=== PATIENT | female | born 1975 ===

== ENCOUNTER 2024-01-02 10:59 | Outpatient (REF) | payer OTHER, SELFPAY ==
--- NOTE | ~2024-01-02 | XR_ITS ---
EXAMINATION: XR ANKLE, RIGHT CLINICAL INFORMATION: Pain. COMPARISON: None available. TECHNIQUE: AP, lateral, and mortise views of the right ankle. FINDINGS: Ankle joint effusion. Diffuse soft tissue swelling at the ankle. Diffuse plantar and dorsal calcaneal spurs. Alignment preserved. No displaced fracture. XR/XR ankle RT min 3V IMPRESSION: Diffuse soft tissue swelling. No displaced fracture. Recommend follow-up imaging in 10-14 days if fracture is suspected.
== END 2024-01-02 11:00 | disposition home or self-care (01) ==
LOC: HO.HOSX 10:59
PROVIDERS: Visit Provider Orthopaedic Surgery
DX: S93.401A Sprain of unspecified ligament of right ankle, initial encounter (principal)
CPT/HCPCS: 73610

== ENCOUNTER 2024-01-02 10:59 | Outpatient (AMB) | payer OTHER, SELFPAY ==
--- NOTE | 2024-01-02 11:00 | A.OFFVIS_ITS ---
Intake Vital Signs 01/02/24 11:33 Height 5 ft 5 in Weight 170 lb BMI 28.3 Intake Visit Reasons: [employer]- RT ankle pain/ needs x-ray Intake Note: Adelaide Kent is a 48 year old female who presents as a new patient with Right ankle pain. Patient reports she injured her Right ankle while taking out the trash and she stepped in a hole and twisted it. Her pain is a 7 on the 1-10 pain scale. She denies any other injuries. She denies previous injury to her right ankle. Allergies No Known Allergies Allergy (Verified 01/02/24 11:34) Medication List - Last Reconciled 01/02/24 by Juwan Delarosa MD No Known Home Meds [facility] Surgical History (Updated 01/02/24 @ 11:36 by Davina Valadez CMA) History of cholecystectomy (~2020) Social History (Updated 01/02/24 @ 11:37 by Davina Valadez CMA) Patient Tobacco Use Status: Never used Tobacco Current occupation: teacher Physical Exam Vital Signs: BMI result Body Mass Index 28.3 Const Other: Well-nourished well-developed very friendly female awake alert and oriented x3 in no acute distress Extrem Other: Right ankle examination shows tenderness along her anterior lateral joint line with mild diffuse swelling, no skin lesions, or lower leg compartments are soft Results Reviewed Results Reviewed: X-rays of the patient's right ankle taken today show no acute bony abnormalities Assessment & Plan Assessment & Plan (1) Right ankle sprain: Code(s): S93.401A - Sprain of unspecified ligament of right ankle, initial encounter Plan Mrs. Alva presents with an anterolateral right ankle sprain. I had a lengthy discussion with the patient regarding the treatment options. Most likely the patient's injury will heal with non operative treatments. The patient states that she will purchase an ankle brace on her own. Activity modifications were discussed at length with the patient. She will follow up with me on an as- needed basis should her symptoms not plateau at an unacceptable level over the next few weeks. I spent 11 minutes in reviewing the patient's records and imaging studies, seeing the patient and documenting in the medical record. Orders: Orders XR ankle RT min 3V Today Coding Level of Care Code New Pt Level 2 (18882) Diagnoses Right ankle sprain S93.401A
[2024-01-02 11:33] VITALS: BMI 28.3
== END 2024-01-02 12:03 | disposition home or self-care (01) ==
LOC: HO.HOS 10:59
PROVIDERS: Visit Provider Orthopaedic Surgery
DX: S93.401A Sprain of unspecified ligament of right ankle, initial encounter (principal)
CPT/HCPCS: 99202

== ENCOUNTER 2024-01-18 07:41 | Outpatient (REF) | payer OTHER, SELFPAY | END 2024-01-18 07:42 | disposition home or self-care (01) | LOC: HO.HOSX 07:41 | PROVIDERS: Visit Provider Orthopaedic Surgery | DX: Z13.89 Encounter for screening for other disorder (principal) ==